=== PATIENT | female | born 1960 | race Caucasian/White ===

== ENCOUNTER 2020-08-16 16:16 | Emergency (ER) | payer OTHER ==
[~2020-08-16 16:16] MED LIST: ALENDRONATE SOD70 MG PO; ASPIRIN CHEWABL81 MG PO; CALCIUM 600 +1 EAC3 PO; DIAZEPAM 5MG TAB5 MG PO; FLEXERIL10 MG PO; IBUPROFEN800 MG PO; MELOXICAM15 MG PO; METRONIDAZOLE45 G1 TOP; NITROQUIK SL0.4 MG SL; OXYCODONE-ACET1 EAC1 PO; STELARA90 MG/1 ML IM; VENTOLIN HFA IN18 GM INH; VITAMIN D2000 UNI1 PO; VITAMIN D50000 UNIT PO
[2020-08-16] MEDS ORDERED: IBUPROFEN800 MG PO (18:13)
== END 2020-08-16 18:17 | disposition home or self-care (01) ==
LOC: FER 16:16
DX: S29.011A Strain of muscle and tendon of front wall of thorax, initial encounter (principal); M06.9 Rheumatoid arthritis, unspecified; G89.29 Other chronic pain; Z88.0 Allergy status to penicillin; Z88.2 Allergy status to sulfonamides; Z85.6 Personal history of leukemia; Z79.82 Long term (current) use of aspirin; Z79.891 Long term (current) use of opiate analgesic; X50.9XXA Other and unspecified overexertion or strenuous movements or postures, initial encounter
CPT/HCPCS: 71045; 71100